=== PATIENT | male | born 1940 | race Caucasian/White ===

== ENCOUNTER 2021-08-19 12:24 | Emergency (ER) | payer OTHER ==
[~2021-08-19] VITALS: Ht 182.9 cm; Wt 97.5 kg
[2021-08-19] MEDS ORDERED: ACETAMINOPHEN 325 MG TAB PO ONE (15:15)
[2021-08-19] MEDS ORDERED: HYDROcodone-ACET 5/325MG TAB PO ONE (15:15)
[2021-08-19] MEDS ORDERED: MIDAZOLAM HCL 5 MG/ML-1ML VIAL IV ONE ×3 (18:45→20:15)
[2021-08-19] MEDS ORDERED: fentaNYL CITRATE 100 MCG/2 ML VL IV ONE ×5 (18:45→23:45)
[2021-08-19] MEDS ORDERED: fentaNYL CITRATE 5 ML ONE (20:34)
[2021-08-19] MEDS ORDERED: MIDAZOLAM HCL 2MG/2ML 2ml VIAL (1mg/ml) ONE (20:35)
[2021-08-19] MEDS ORDERED: MIDAZOLAM HCL 2MG/2ML 2ml VIAL (1mg/ml) IV ONE ×2 (20:45)
[2021-08-20 03:10] VITALS: BP 151/83
[2021-08-20] MEDS ORDERED: fentaNYL CITRATE 100 MCG/2 ML VL IV ONE (03:30)
== END 2021-08-20 04:40 | disposition home or self-care (01) ==
LOC: ER 12:24 → EDBD 12:24 → ER 08-20 04:40
DX: S53.125A Posterior dislocation of left ulnohumeral joint, initial encounter (principal); R51.9 Headache, unspecified; I10 Essential (primary) hypertension; E11.9 Type 2 diabetes mellitus without complications; I48.91 Unspecified atrial fibrillation; Z86.73 Personal history of transient ischemic attack (TIA), and cerebral infarction without residual deficits; Z95.0 Presence of cardiac pacemaker; Z20.822 Contact with and (suspected) exposure to COVID-19; W18.39XA Other fall on same level, initial encounter; Y93.89 Activity, other specified; Y92.89 Other specified places as the place of occurrence of the external cause; Y99.8 Other external cause status
CPT/HCPCS: 24600; 36415; 70450; 73070; 73080; 82962; 87426; 99152; 99285; J2250; J3010